=== PATIENT | female | born 1980 | race Hispanic/Latino ===

== ENCOUNTER 2017-04-26 16:15 | Emergency (ER) | payer SELFPAY ==
[~2017-04-26] VITALS: Ht 157.5 cm; Wt 60.0 kg
[~2017-04-26 16:15] MED LIST: AMOXICILLIN500 MG PO; LORTAB 5/3255 MG PO; NO HOME MEDS; ROBITUSSIN AC10 ML PO; ZITHROMAX250 MG PO
[2017-04-26 17:39] LABS: BARBITURATES NEGATIVE (NEGATIVE); COCAINE POSITIVE (NEGATIVE); METHADONE NEGATIVE (NEGATIVE); OXCYCODONE NEGATIVE (NEGATIVE); TETRAHYDROCANNABIONOL NEGATIVE (NEGATIVE); TRICYLIC ANTIDEPRESSANTS NEGATIVE (NEGATIVE)
[2017-04-26] MEDS ORDERED: MOTRIN800 MG PO (18:33)
[2017-04-26] MEDS ORDERED: TRAMADOL HYDROC50 MG PO (18:33)
[2017-04-26] MEDS ORDERED: FLEXERIL PO (18:33)
[2017-04-26 19:40] VITALS: BP 110/64
== END 2017-04-26 19:40 | disposition home or self-care (01) | DRG 605 ==
LOC: ED 16:15
PROVIDERS: Emergency Medicine
DX: S30.0XXA Contusion of lower back and pelvis, initial encounter (principal); M79.1 Myalgia; S33.5XXA Sprain of ligaments of lumbar spine, initial encounter; W10.9XXA Fall (on) (from) unspecified stairs and steps, initial encounter; Y93.89 Activity, other specified; Y92.009 Unspecified place in unspecified non-institutional (private) residence as the place of occurrence of the external cause

== ENCOUNTER 2017-12-04 00:19 | Emergency (ER) | payer SELFPAY ==
[~2017-12-04] VITALS: Ht 157.5 cm; Wt 54.5 kg
[~2017-12-04 00:19] MED LIST changes: +FLEXERIL PO; +MOTRIN800 MG PO; +TRAMADOL HYDROC50 MG PO
[2017-12-04 00:48] LABS: URINE BILIRUBIN - DIPSTICK NEGATIVE (NEGATIVE); URINE BLOOD DIPSTICK LARGE (NEGATIVE); URINE CLARITY TURBID; URINE COLOR YELLOW; URINE GLUCOSE - DIPSTICK NEGATIVE (NEGATIVE); URINE KETONE NEGATIVE (NEGATIVE); URINE LEUK ESTERASE LARGE (NEGATIVE); URINE NITRITE - DIPSTICK NEGATIVE (Negative); URINE PH 6.5 (4.5-8.0); URINE PROTEIN - DIPSTICK >=300 mg/dL (NEG-TRACE); URINE SPECIFIC GRAVITY 1.025; URINE UROBILINOGEN - DIPSTICK 0.2 E.U./dL (0.2)
[2017-12-04 00:49] LABS: URINE BACTERIA FEW hpf; URINE MUCUS FEW hpf (NONE-FEW); URINE SQUAMOUS EPITHELIAL CELL FEW EPI/hpf (0-FEW); URINE WBC 50-100 WBC/hpf (0-5)
[2017-12-04] MEDS ORDERED: PYRIDIUM200 MG PO (01:11)
[2017-12-04] MEDS ORDERED: CIPROFLOXACN500 MG PO (01:11)
[2017-12-04] MEDS ORDERED: LORTAB 1010 MG PO (01:11)
[2017-12-04 01:18] VITALS: BP 100/78
== END 2017-12-04 01:25 | disposition home or self-care (01) | DRG 690 ==
LOC: ED 00:19
PROVIDERS: Emergency Medicine
DX: N39.0 Urinary tract infection, site not specified (principal); F17.210 Nicotine dependence, cigarettes, uncomplicated; B95.7 Other staphylococcus as the cause of diseases classified elsewhere; Z97.5 Presence of (intrauterine) contraceptive device

== ENCOUNTER 2018-03-04 10:31 | Emergency (ER) | payer SELFPAY ==
[~2018-03-04] VITALS: Ht 157.5 cm; Wt 54.5 kg
[~2018-03-04 10:31] MED LIST changes: +CIPROFLOXACN500 MG PO; +LORTAB 1010 MG PO; +PYRIDIUM200 MG PO
[2018-03-04 11:45] LABS: URINE BILIRUBIN - DIPSTICK NEGATIVE (NEGATIVE); URINE BLOOD DIPSTICK NEGATIVE (NEGATIVE); URINE CLARITY CLEAR; URINE COLOR YELLOW; URINE GLUCOSE - DIPSTICK NEGATIVE (NEGATIVE); URINE KETONE NEGATIVE (NEGATIVE); URINE LEUK ESTERASE NEGATIVE (NEGATIVE); URINE NITRITE - DIPSTICK NEGATIVE (Negative); URINE PROTEIN - DIPSTICK NEGATIVE (NEG-TRACE); URINE SPECIFIC GRAVITY 1.015; URINE UROBILINOGEN - DIPSTICK 0.2 E.U./dL (0.2)
[2018-03-04 11:49] LABS: HCG SERUM/URINE (NEG/POS) NEGATIVE (NEGATIVE)
[2018-03-04 11:58] LABS: HEMATOCRIT 39.4 % (37.0-47.0); HEMOGLOBIN 12.9 g/dl (12.0-16.0); IMMATURE GRANULOCYTES 0.5 % (0.0-5.0); MEAN CELL VOLUME 93.4 fL CALC (80.0-100.0); MEAN CORPUSCULAR HGB 30.6 pG CALC (26.0-32.0); MEAN CORPUSCULAR HGB CONC 32.7 g/L CALC (32.0-36.0); NEUT# 12.25 thou/uL (2.00-7.15); RED BLOOD COUNT 4.22 mill/uL (4.20-5.60)
[2018-03-04 12:13] LABS: ALKALINE PHOSPHATASE 75 u/l (38-126); ANION GAP 13 (6-22 (CALC)); BILIRUBIN, TOTAL 0.3 mg/dL (0.0-1.4); BUN 12 mg/dL (7-17); BUN/CREATININE RATIO 17 (12-20 (CALC)); CARBON DIOXIDE 25 mmol/l (22-30); CHLORIDE 110 mmol/l (95-108); CREATININE 0.8 mg/dL (0.5-1.0); GFR > 60 ML/MIN (>=60 (CALC)); GFR FOR AFR.AMER. > 60 ML/MIN (>=60 (CALC)); LIPASE 229 u/l (23-300); POTASSIUM 3.7 mmol/l (3.5-5.1); SGOT/AST 16 u/l (14-36); SODIUM 144 mmol/l (137-146); TOTAL PROTEIN 7.1 g/dL (6.3-8.2)
[2018-03-04] MEDS ORDERED: AUGMENTIN875TAB PO (13:33)
[2018-03-04] MEDS ORDERED: ZPAK PO (13:33)
[2018-03-04 13:55] VITALS: BP 112/74
== END 2018-03-04 14:18 | disposition home or self-care (01) | DRG 392 ==
LOC: ED 10:31
PROVIDERS: Family Medicine
DX: R10.30 Lower abdominal pain, unspecified (principal); F05 Delirium due to known physiological condition; R50.9 Fever, unspecified; J06.9 Acute upper respiratory infection, unspecified; N93.9 Abnormal uterine and vaginal bleeding, unspecified
CPT/HCPCS: Q9967

== ENCOUNTER 2018-11-24 11:35 | Emergency (ER) | payer SELFPAY ==
[~2018-11-24] VITALS: Ht 157.5 cm; Wt 50.0 kg
[~2018-11-24 11:35] MED LIST changes: +AUGMENTIN875TAB PO; +ZPAK PO
[2018-11-24] MEDS ORDERED: AMOXICILLIN500 MG PO (11:46)
[2018-11-24] MEDS ORDERED: NAPROSYN500 MG PO (11:46)
[2018-11-24 11:55] VITALS: BP 112/64
== END 2018-11-24 11:55 | disposition home or self-care (01) | DRG 153 ==
LOC: ED 11:35
DX: J02.9 Acute pharyngitis, unspecified (principal); F17.200 Nicotine dependence, unspecified, uncomplicated

== ENCOUNTER 2019-08-05 22:18 | Emergency (ER) | payer SELFPAY ==
[~2019-08-05 22:18] MED LIST changes: +NAPROSYN500 MG PO
[2019-08-05 22:34] VITALS: BP 132/91
== END 2019-08-05 23:41 | disposition left against medical advice (07) | DRG 951 ==
LOC: ED 22:18 → LWOBS 23:41
DX: Z53.21 Procedure and treatment not carried out due to patient leaving prior to being seen by health care provider (principal)

== ENCOUNTER 2020-04-02 13:11 | Emergency (ER) | payer SELFPAY ==
[~2020-04-02] VITALS: Ht 157.5 cm; Wt 50.0 kg
[2020-04-02 14:41] LABS: HEMATOCRIT 39.5 % (37.0-47.0); HEMOGLOBIN 12.3 g/dl (12.0-16.0); IMMATURE GRANULOCYTES 0.3 % (0.0-5.0); MEAN CELL VOLUME 96.3 fL CALC (80.0-100.0); MEAN CORPUSCULAR HGB CONC 31.1 g/dL CAL (32.0-36.0); NEUT# 6.38 thou/uL (2.00-7.15); RED BLOOD COUNT 4.1 mill/uL (4.20-5.60); RED CELL DISTRI WIDTH 13.3 % (11.5-15.5)
[2020-04-02 14:56] LABS: ALBUMIN 4.1 g/dL (3.2-5.0); ALKALINE PHOSPHATASE 72 u/l (38-126); ANION GAP 11 (6-22 (CALC)); BILIRUBIN, TOTAL 0.2 mg/dL (0.0-1.4); BUN 18 mg/dL (7-17); BUN/CREATININE RATIO 19 (12-20 (CALC)); CARBON DIOXIDE 27 mmol/l (22-30); CHLORIDE 110 mmol/l (95-108); CREATININE 0.9 mg/dL (0.5-1.0); GFR > 60 ML/MIN (>=60 (CALC)); GFR FOR AFR.AMER. > 60 ML/MIN (>=60 (CALC)); POTASSIUM 4.1 mmol/l (3.5-5.1); SGOT/AST 19 u/l (14-36); SODIUM 144 mmol/l (137-146); TOTAL PROTEIN 7.4 g/dL (6.3-8.2)
[2020-04-02 15:05] VITALS: BP 114/66
[2020-04-02 16:45] LABS: URINE BILIRUBIN - DIPSTICK NEGATIVE (NEGATIVE); URINE BLOOD DIPSTICK NEGATIVE (NEGATIVE); URINE COLOR YELLOW; URINE GLUCOSE - DIPSTICK NEGATIVE (NEGATIVE); URINE KETONE NEGATIVE (NEGATIVE); URINE LEUK ESTERASE NEGATIVE (NEGATIVE); URINE NITRITE - DIPSTICK NEGATIVE (Negative); URINE PH 5.5 (4.5-8.0); URINE PROTEIN - DIPSTICK NEGATIVE (NEG-TRACE); URINE SPECIFIC GRAVITY 1.025; URINE UROBILINOGEN - DIPSTICK 0.2 E.U./dL (0.2)
[2020-04-02] MEDS ORDERED: NAPROXEN500 MG PO (17:26)
== END 2020-04-02 17:37 | disposition home or self-care (01) | DRG 761 ==
LOC: ED 13:11
PROVIDERS: Emergency Medicine
DX: N93.8 Other specified abnormal uterine and vaginal bleeding (principal); N83.202 Unspecified ovarian cyst, left side; F17.200 Nicotine dependence, unspecified, uncomplicated; Z97.5 Presence of (intrauterine) contraceptive device
CPT/HCPCS: Q9967

== ENCOUNTER 2020-05-16 16:37 | Emergency (ER) | payer OTHER ==
[~2020-05-16] VITALS: Ht 157.5 cm; Wt 60.0 kg
[~2020-05-16 16:37] MED LIST changes: +NAPROXEN500 MG PO
[2020-05-16 17:29] LABS: HEMATOCRIT 38.9 % (37.0-47.0); HEMOGLOBIN 12.4 g/dl (12.0-16.0); IMMATURE GRANULOCYTES 0.5 % (0.0-5.0); MEAN CORPUSCULAR HGB CONC 31.9 g/dL CAL (32.0-36.0); NEUT# 7.75 thou/uL (2.00-7.15); RED BLOOD COUNT 4.14 mill/uL (4.20-5.60); RED CELL DISTRI WIDTH 13.2 % (11.5-15.5)
[2020-05-16 17:47] LABS: AMYLASE 124 u/l (30-110); LIPASE 438 u/l (23-300)
[2020-05-16 17:48] LABS: ALBUMIN 4.3 g/dL (3.2-5.0); ALKALINE PHOSPHATASE 69 u/l (38-126); ANION GAP 11 (6-22 (CALC)); BILIRUBIN, TOTAL 0.2 mg/dL (0.0-1.4); BUN 18 mg/dL (7-17); BUN/CREATININE RATIO 22 (12-20 (CALC)); CARBON DIOXIDE 28 mmol/l (22-30); CHLORIDE 103 mmol/l (95-108); CREATININE 0.8 mg/dL (0.5-1.0); GFR > 60 ML/MIN (>=60 (CALC)); GFR FOR AFR.AMER. > 60 ML/MIN (>=60 (CALC)); POTASSIUM 4.6 mmol/l (3.5-5.1); SGOT/AST 24 u/l (14-36); SODIUM 138 mmol/l (137-146); TOTAL PROTEIN 7.6 g/dL (6.3-8.2)
[2020-05-16 18:03] LABS: BETA-HCG, QUANT(RESULT NUMBER) <2 mIU/mL
[2020-05-16 18:23] LABS: URINE BILIRUBIN - DIPSTICK NEGATIVE (NEGATIVE); URINE BLOOD DIPSTICK NEGATIVE (NEGATIVE); URINE COLOR YELLOW; URINE GLUCOSE - DIPSTICK NEGATIVE (NEGATIVE); URINE KETONE NEGATIVE (NEGATIVE); URINE PH 6.5 (4.5-8.0); URINE PROTEIN - DIPSTICK NEGATIVE (NEG-TRACE); URINE SPECIFIC GRAVITY 1.025; URINE UROBILINOGEN - DIPSTICK 0.2 E.U./dL (0.2)
[2020-05-16 18:24] LABS: URINE LEUK ESTERASE SMALL (NEGATIVE); URINE NITRITE - DIPSTICK POSITIVE (Negative)
[2020-05-16 18:33] LABS: URINE BACTERIA RARE hpf; URINE SQUAMOUS EPITHELIAL CELL FEW EPI/hpf (0-FEW)
[2020-05-16] MEDS ORDERED: PREVACID30 M3 PO (19:12)
[2020-05-16] MEDS ORDERED: KEFLEX500 M1 PO (19:12)
[2020-05-16] MEDS ORDERED: MIRALAX17 GM PO (19:12)
[2020-05-16 19:43] VITALS: BP 109/70
== END 2020-05-16 19:45 | DRG 690 ==
LOC: ED 16:37
PROVIDERS: Emergency Medicine
DX: N39.0 Urinary tract infection, site not specified (principal); K59.00 Constipation, unspecified; D25.9 Leiomyoma of uterus, unspecified; F17.200 Nicotine dependence, unspecified, uncomplicated; B96.1 Klebsiella pneumoniae [K. pneumoniae] as the cause of diseases classified elsewhere
CPT/HCPCS: Q9967